=== PATIENT | male | born 1935 | race Caucasian/White ===

== ENCOUNTER 2019-11-26 11:09 | Inpatient (IN) | payer OTHER ==
[~2019-11-26] VITALS: Ht 170.2 cm; Wt 63.0 kg
[2019-11-26] MEDS ORDERED: NACL 0.9% 1,000 ML IV ONE (11:15)
--- NOTE | 2019-11-26 11:15 | NUR ---
RECEIVED AND IN ROOM 8. AMIE TO ASSUME CARE. HERE FROM SNF FOR DISLODGED G-TUBE. UPON ARRIVAL SITE CLEAR NO DRAINAGE. OPENING CLOSED. PT CALM,REST UNLABORED, SKIN WARM AND DRY. NONVERBAL, EYES OPEN,
--- NOTE | 2019-11-26 11:21 | NUR ---
DR NIETO IN TO ASSESS.
[2019-11-26 11:25] VITALS: BP_SYST 118
[2019-11-26 11:34] LABS: BASOPHILS % (AUTO) 0.6 % (0.0-2.0); EOSINOPHILS # (AUTO) 0.4 K/uL (0.0-0.4); EOSINOPHILS % (AUTO) 5.7 % (0.0-4.0); HEMATOCRIT 38.4 % (36-54); HEMOGLOBIN 12.8 g/dL (14.0-18.0); LYMPHOCYTES # (AUTO) 1.4 K/uL (1.0-5.5); LYMPHOCYTES % (AUTO) 20.4 % (20.5-51.5); MEAN CORPUSCULAR HEMOGLOBIN 30 pg (27-31); MEAN CORPUSCULAR HGB CONC 33 % (32-36); MEAN CORPUSCULAR VOLUME 92 fL (79.0-98.0); MONOCYTES # (AUTO) 0.5 K/uL (0.0-1.0); NEUTROPHILS # (AUTO) 4.5 K/uL (1.8-7.7); NEUTROPHILS % (AUTO) 66.3 % (40.0-70.0); PLATELET COUNT (AUTO) 159 K/uL (130-430); RED BLOOD CELL COUNT(AUTO) 4.19 MIL/uL (4.2-6.2); RED CELL DISTRIBUTION WIDTH 14.5 % (9.0-15.0); WHITE BLOOD COUNT (AUTO) 6.7 K/uL (4.8-10.8)
[2019-11-26 11:46] LABS: ANION GAP 6 (5-15); CALCIUM 8.4 mg/dL (8.4-11.0); CHLORIDE 102 mmol/L (98-107); CREATININE 0.93 mg/dL (0.55-1.30); GLUCOSE 103 mg/dL (70-99); POTASSIUM 3.7 mmol/L (3.5-5.1); SODIUM SERUM 136 mmol/L (136-145); UREA NITROGEN, BLOOD 17 mg/dL (8-21)
[2019-11-26 11:52] LABS: ALANINE AMINOTRANSFERASE 17 U/L (12-78); ALBUMIN 3.3 g/dL (3.4-4.8); ASPARTATE AMINOTRANSFERASE 12 U/L (10-37); LIPASE 79 U/L (73-393); TOTAL BILIRUBIN 0.5 mg/dL (0.0-1.0)
--- NOTE | 2019-11-26 12:22 | NUR ---
CXR,EKG,LABS COMPLETED, IV HYDRATION IN PROGRESS, NO DISTRESS. RESP UNLABORED.
[2019-11-26] MEDS ORDERED: CARB1TAB10 GT (13:10)
[2019-11-26] MEDS ORDERED: GLUC1VIA4 IJ (13:10)
[2019-11-26] MEDS ORDERED: FERR220S6 PO (13:10)
[2019-11-26] MEDS ORDERED: FINA5TAB3 GT (13:10)
[2019-11-26] MEDS ORDERED: SENN8.6T19 GT (13:10)
[2019-11-26] MEDS ORDERED: AMI200 GT (13:10)
[2019-11-26] MEDS ORDERED: OMEP20CA11 GT (13:10)
[2019-11-26] MEDS ORDERED: MULT9LIQ6 GT (13:10)
[2019-11-26] MEDS ORDERED: IPRA4AER INH ×2 (13:10)
[2019-11-26] MEDS ORDERED: HYDR-4037 PO (13:10)
[2019-11-26] MEDS ORDERED: ASCO500T20 GT (13:10)
[2019-11-26] MEDS ORDERED: POLY17PO4 GT (13:10)
[2019-11-26] MEDS ORDERED: TAMS-11 GT (13:10)
--- NOTE | 2019-11-26 13:11 | NUR ---
Medication reconciliation completed with information provided by Andrez Carnes. Any prior medication reconciliation on file was reviewed and corrected.
--- NOTE | 2019-11-26 13:15 | NUR ---
ADMIT ORDERS RECEIVED FOR M/S ADMIT
--- NOTE | 2019-11-26 13:29 | NUR ---
Patient will be admitted to care of [facility]. Admitted to M/S unit. Will go to room 105. Belongings list completed. Complete and up to date summary report printed. SBAR report to be given at bedside with opportunity for questions.
--- NOTE | 2019-11-26 13:43 | NUR ---
admission: Received from ER on a gurney with the diagnosis of GT malfunction. Patient is awake, non verbal. Unable to provide any information. Oriented to room , call light within reach.
[2019-11-26 13:45] VITALS: BP_SYST 143
[2019-11-26] MEDS ORDERED: MORPHINE 2 MG/ML INJ. SYRINGE IVP PRN (13:45)
[2019-11-26] MEDS: D5/0.45 NS 500 ML IV SCH ×2 (13:45→19:16)
[2019-11-26] MEDS ORDERED: ONDANSETRON HCL 4 MG/2 ML VIAL IVP PRN (13:45)
[2019-11-26] MEDS ORDERED: MORPHINE 4 MG/ML INJ. SYRINGE IVP PRN (13:45)
[2019-11-26] MEDS ORDERED: LORazepam 2 MG/ML VIAL IVP PRN (13:45)
--- NOTE | 2019-11-26 15:39 | NUR ---
ROUNDS PT AWAKE, EYES OPEN. NONVERBAL. NO ACUTE DISTRESS NOTED. ALL NEEDS MET. CALL LIGHT IN REACH. CONTINUE TO MONITOR.
--- NOTE | 2019-11-26 17:22 | NUR ---
SEEN BY DR. CADENA AT BEDSIDE.
--- NOTE | 2019-11-26 18:30 | NUR ---
IV RE-INSERTION: PT PULLED OUT IV LINE. Restarted on LEFT 22G AND RIGHT ARM 20G. Successful after 2 attempts. BUTCH DUCKWORTH INSERTED THE TWO IV LINES AFTER THE 2 ATTEMPTS. Resumed current IVF of D5 1/S NS AT 100ML/HR. Will observe for any signs of infiltration.
--- NOTE | 2019-11-26 19:00 | NUR ---
CLOSING NOTES PT AWAKE, EYES OPEN AND NONVERBAL. NONLABORED BREATHING NOTED ON ROOM AIR. IV LINES INTACT AND PATENT, NO SIGNS OF INFILTRATION NOTED, FLUIDS RUNNING ORDERED PER MD. PT CLEAN AND DRY. NO ACUTE DISTRESS NOTED. BED LOCKED AND IN LOWEST POSITION. BED ALARM ON. ALL NEEDS MET. CALL LIGHT IN REACH. FALL AND ASPIRATION PRECAUTIONS IN PLACE. ENDORSED CARE TO BUTCH LUIS.
--- NOTE | 2019-11-26 19:30 | NUR ---
OPENING NOTES RECEIVED SBAR REPORT FROM DAY SHIFT RN. PT RESTING IN BED, AOX1, NONVERBAL. BREATHING EVEN AND UNLABORED TO ROOM AIR. VSS. O2 SAT 94%. IVF RUNNING ORDERED RATE. NO S/S OF INFILTRATION NOTED. PT TOLERATING WELL. BED ALARM ON, LOCKED IN LOWEST LEVEL. CLOSE TO NURSING STATION. SAFETY AND FALL PRECAUTIONS ARE MAINTAINED. WILL CONTINUE TO MONITOR.
[2019-11-26 20:00] VITALS: BP_SYST 117
--- NOTE | 2019-11-26 21:45 | NUR ---
RN ROUNDS PT RESTING IN BED WITH EYES CLOSED. RISE AND FALL RESPIRATION NOTED. NO S/S OF SHORTNESS OF BREATH. BREATHING UNLABORED TO ROOM AIR. IVF RUNNING ORDERED RATE. PT TOLERATING WELL. BED LOCKED IN LOWEST LEVEL. SAFETY AND FALL PRECAUTIONS ARE IN PLACE. WILL CONTINUE TO MONITOR.
--- NOTE | 2019-11-27 00:05 | NUR ---
RESTING PT RESTING IN BED. NO S/S OF DISTRESS NOTED. BREATHING IS EVEN AND UNLABORED TO ROOM AIR. VSS. IVF RUNNING ORDERED RATED. NO S/S OF INFILTRATION NOTED. BED ALARM ON, LOCKED IN LOWEST LEVEL. SAFETY AND FALL PRECAUTIONS MAINTAINED. WILL CONTINUE TO MONITOR.
[2019-11-27 00:30] VITALS: BP_SYST 152
[2019-11-27] MEDS: D5/0.45 NS 500 ML IV SCH ×5 (01:18→20:30)
--- NOTE | 2019-11-27 02:20 | NUR ---
RN ROUNDS PT RESTING IN BED. BREATHING IS EASY AND UNLABORED TO ROOM AIR. NO S/S OF SHORTNESS OF BREATH. IVF RUNNING ORDERED RATE. BED LOCKED IN LOWEST LEVEL. SAFETY AND FALL PRECAUTIONS ARE IN PLACE. WILL MONITOR.
--- NOTE | 2019-11-27 04:15 | NUR ---
INCONTINENCE CARE. PROVIDED INCONTINENCE CARE. PT TOLERATED WELL. NO S/S OF DISTRESS NOTED. BREATHING EVEN AND UNLABORED TO ROOM AIR. BED ALARM ON, LOCKED IN LOWEST LEVEL. SIDE RAILS X3. CLOSE TO NURSING STATION. SAFETY AND FALL PRECAUTIONS MAINTAINED. WILL CONTINUE TO MONITOR.
--- NOTE | 2019-11-27 06:39 | NUR ---
CLOSING NOTES PT RESTING IN BED, AOX1, NONVERBAL. BREATHING EVEN AND UNLABORED TO ROOM AIR. IVF RUNNING ORDERED RATE. NO S/S OF INFILTRATION NOTED. PT TOLERATING WELL. BED ALARM ON, LOCKED IN LOWEST LEVEL. CLOSE TO NURSING STATION. SAFETY AND FALL PRECAUTIONS ARE MAINTAINED. ALL NEEDS ARE MET THROUGHOUT SHIFT. WILL CONTINUE TO MONITOR UNTIL ENDORSE TO DAY SHIFT RN.
[2019-11-27 07:16] LABS: INR 1.1 (0.80-1.20); PROTHROMBIN TIME 10.9 SECS (9.5-12.5)
[2019-11-27 08:00] VITALS: BP_SYST 113
--- NOTE | 2019-11-27 12:02 | NUR ---
son Jabari the second, called. He is ELLEN, , at the SNF, patient on pureed diet, and supplemental GT feed. Talked to the attending, we put patient on pureed, starting today lunch, to see how he is doing, and will go from there.
[2019-11-27 12:39] VITALS: BP_SYST 104
[2019-11-27] MEDS ORDERED: CEFAZOLIN 1 GM IVPB PREMIX 50 ML IV ONE (15:30)
--- NOTE | 2019-11-27 15:53 | NUR ---
Pureed diet on hold, secondary to the EGD with GT placement scheduled at [address] Daniel. Continues with ivf, ANCEF ivpb given at 1530 as scheduled prior to GI lab.
[2019-11-27] MEDS ORDERED: SIMETHICONE 40 MG/0.6 ML ML ONE (16:21)
[2019-11-27] MEDS: MIDAZOLAM HCL 5 MG/5 ML VIAL ONE ×2 (16:48→16:50)
[2019-11-27] MEDS: fentaNYL CITRATE/PF 100 MCG/2 ML AMP ONE ×2 (16:48→16:50)
--- NOTE | 2019-11-27 17:12 | NUR ---
AMBULANCE ARRANGEMENT [facility] CALLED FOR A 2000 PICK-UP TIME, SPOKE WITH DISPATCHER MARINA.
[2019-11-27 17:13] VITALS: BP_SYST 125
--- NOTE | 2019-11-27 17:22 | NUR ---
GT in at bedside by dr Daniel this evening. will start feeding the patient at 0100am, 11/27 per GI order. Oncoming shift to follow this up. For now still continues with ivf d51/2 ns at 100cc per hour, until resumes the tube feed. Son Jabari savage made aware.
--- NOTE | 2019-11-27 19:30 | NUR ---
OPENING NOTES PATIENT IN BED RESTING. BREATHING UNLABORED ON ROOM AIR. IVF INFUSING ORDERED WITH IV LINE INTACT AND PATENT. BED IN LOWEST LOCKED POSITION WITH ALARM ON. CALL LIGHT WITH IN REACH.
[2019-11-27 20:20] VITALS: BP_SYST 126
--- NOTE | 2019-11-27 21:00 | NUR ---
ROUNDS PATIENT AWAKE IN BED. NO DISTRESS NOTED. VITAL SIGNS STABLE.
--- NOTE | 2019-11-27 23:00 | NUR ---
ROUNDS CONDITION NO CHANGE.
[2019-11-28] MEDS: D5/0.45 NS 500 ML IV SCH
[2019-11-28 01:07] VITALS: BP_SYST 114
--- NOTE | 2019-11-28 01:30 | NUR ---
GT FEEDING GT FEEDING STARTED WITH JEVITY 1.2 @ 10 ML HR ORDERED. ABDOMINAL BINDER IN PLACED.
--- NOTE | 2019-11-28 05:31 | NUR ---
AM CARE INCONTINENCE CARE DONE. PATIENT HAD SOFT BOWEL MOVEMENT. LINENS CHANGED. SKIN CARE RENDERED.
[2019-11-28 06:23] LABS: ANION GAP 4 (5-15); CALCIUM 8.4 mg/dL (8.4-11.0); CHLORIDE 105 mmol/L (98-107); CREATININE 1.02 mg/dL (0.55-1.30); GLUCOSE 107 mg/dL (70-99); POTASSIUM 4.1 mmol/L (3.5-5.1); SODIUM SERUM 136 mmol/L (136-145); UREA NITROGEN, BLOOD 12 mg/dL (8-21)
[2019-11-28 06:37] LABS: BASOPHILS # (AUTO) 0.1 K/uL (0.0-0.2); BASOPHILS % (AUTO) 0.8 % (0.0-2.0); EOSINOPHILS # (AUTO) 0.4 K/uL (0.0-0.4); HEMATOCRIT 40.5 % (36-54); HEMOGLOBIN 13.4 g/dL (14.0-18.0); LYMPHOCYTES # (AUTO) 1.6 K/uL (1.0-5.5); LYMPHOCYTES % (AUTO) 21.8 % (20.5-51.5); MEAN CORPUSCULAR HEMOGLOBIN 30 pg (27-31); MEAN CORPUSCULAR HGB CONC 33 % (32-36); MEAN CORPUSCULAR VOLUME 92 fL (79.0-98.0); MONOCYTES # (AUTO) 0.5 K/uL (0.0-1.0); MONOCYTES % (AUTO) 7.5 % (1.7-9.3); NEUTROPHILS # (AUTO) 4.6 K/uL (1.8-7.7); NEUTROPHILS % (AUTO) 63.9 % (40.0-70.0); PLATELET COUNT (AUTO) 159 K/uL (130-430); RED CELL DISTRIBUTION WIDTH 14.3 % (9.0-15.0); WHITE BLOOD COUNT (AUTO) 7.3 K/uL (4.8-10.8)
--- NOTE | 2019-11-28 06:43 | NUR ---
CLOSING NOTES PATIENT NEEDS ATTENDED. GT FEEDING TOLERATED NOW AT 30 ML/HR. BED IN LOWEST LOCKED POSITION. HOB ELEVATED.
--- NOTE | 2019-11-28 06:48 | NUR ---
Nutrition Update Bennett Scale 14 noted. Pt admitted for GT Malfunction Diet: Jevity 1.5 at 50ml/hr, Free Water Flush 100ml via GT BMI: 21.8 kg/m2 RD to follow per nutrition care standards.
[2019-11-28 08:00] VITALS: BP_SYST 124
--- NOTE | 2019-11-28 11:23 | NUR ---
Dietitian Recommendations *Recommend increasing EN infusion rate to goal. Jevity 1.5 at 50ml/hr (goal rate), Free Water Flush 100ml Q6H via GT Provides: 1800 kcal, 77gm protein and 1312ml free water daily. Meets: 82% of upper end of estimated calorie needs and 95% of lower end of estimated protein needs. Please see Nutritional Assessment for details. [facility], RD
[2019-11-28 12:00] VITALS: BP_SYST 116
[2019-11-28 12:25] VITALS: BP_SYST 136
--- NOTE | 2019-11-28 13:24 | NUR ---
Discharge Planning: [facility] faxed pt referral to [facility] per CM Addendum: 11/28/19 at 1354 by María SMITH CORRECTION--------PATIENT FROM [facility] SPOKE TO REGAN IN ADDMISSION PT CAN GO TO ROOM 106A> [facility] SEND PATIENT AFTER 6:00PM, [facility] TO SET UP TRANSPORTATION CM.
--- NOTE | 2019-11-28 15:37 | NUR ---
Dc Planning: Update pt's son/Renate # [phone] regarding transferring the pt back to [place] this pm. He agreed with the POC. -- KIT Valera at [facility] made aware, she is booking the ambulance transfer ETA 6 pm. 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 -- CARLOS [facility] made aware. May call [facility] tel # [phone] or # [phone] if have any question about the transportation. Addendum: 11/28/19 at 1556 by Batsheva Molina RN [facility] # [phone] confirmed ETA 6 pm.
[2019-11-28 16:14] VITALS: BP_SYST 118
[2019-11-28 16:44] VITALS: BP_SYST 118
--- NOTE | 2019-11-28 18:32 | NUR ---
Follow up call made to [facility], spoke to Nicolette. She said the ambulance is running late and they will be here in 30 minutes. BUTCH Fishman is aware.
--- NOTE | 2019-11-28 19:29 | NUR ---
OPENING NOTE RECEIVED CARE OF PT AND SBAR REPORT. PT RESTING IN BED, AWAITING AMBULANCE TO BE TRANSFERRED BACK TO [facility]. PT HAS NO IV ACCESS. PER DAY SHIFT RN, REPORT HAS BEEN GIVEN TO LOUIN NURSE AND ALL PAPERWORK HAS BEEN COMPLETED. SAFETY AND FALL PRECAUTIONS ARE IN PLACE. BED IS LOCKED AND ALARMED AT THE LOWEST LEVEL. SIDE RAILS UP X3. CLOSE TO NURSES STATION. WILL MONITOR.
--- NOTE | 2019-11-28 19:47 | NUR ---
DISCHARGE PT IN STABLE CONDITION, VSS, NO S/S OF ACUTE DISTRESS. NO IV ACCESS. DISCHARGE INSTRUCTIONS PROVIDED. MEDICATIONS PT WILL BE ON EXPLAINED TO PT, INCLUDING MEDICATION INDICATIONS, ACTIONS AND POTENTIAL SIDE EFFECTS. PT CONFUSED. PT TAKEN VIA GURNEY TO AMBULANCE.
== END 2019-11-28 19:43 | DRG 394 ==
LOC: SED 11:09 → SMU 12:59
PROVIDERS: ADMIT Preventive Medicine Preventive Medicine/Occupational Environmental Medicine; ATTEND Preventive Medicine Preventive Medicine/Occupational Environmental Medicine
PROC: 0DH63UZ Insertion of Feeding Device into Stomach, Percutaneous Approach (ICD-10-PCS; principal; 2019-11-27 16:30)
DX: K94.23 Gastrostomy malfunction (principal); K31.6 Fistula of stomach and duodenum; G20 Parkinson's disease; F02.80 Dementia in other diseases classified elsewhere, unspecified severity, without behavioral disturbance, psychotic disturbance, mood disturbance, and anxiety; I10 Essential (primary) hypertension; J44.9 Chronic obstructive pulmonary disease, unspecified; Z66 Do not resuscitate; N40.0 Benign prostatic hyperplasia without lower urinary tract symptoms; R13.10 Dysphagia, unspecified; K21.9 Gastro-esophageal reflux disease without esophagitis; Z79.899 Other long term (current) drug therapy
CPT/HCPCS: 36415; 71045; 80048; 80053; 83690-TC; 85025; 85610-TC; 87081; 93005; 96360; 99285; J0690; J2250; J3010; J7030